=== PATIENT | male | born 2000 | race Caucasian/White ===

== ENCOUNTER 2020-09-14 18:52 | Emergency (ER) | payer OTHER ==
[~2020-09-14] VITALS: Ht 172.7 cm; Wt 108.9 kg
[2020-09-14 19:50] LABS: BASOPHILS % (AUTO) 0.7 % (0.0-2.0); EOSINOPHILS % (AUTO) 0.5 % (0.0-7.0); HEMATOCRIT 47.6 % (36.7-47.1); HEMOGLOBIN 16.6 g/dL (12.5-16.3); LYMPHOCYTES % (AUTO) 38.6 % (20.5-74.5); MEAN CORPUSCULAR HEMOGLOBIN 30.1 uug (23.8-33.4); MEAN CORPUSCULAR HGB CONC 35 g/dL (32.5-36.3); MEAN CORPUSCULAR VOLUME 86.1 fL (73.0-96.2); MONOCYTES # (AUTO) 0.4 K/uL (2.0-10.0); MONOCYTES % (AUTO) 7.4 % (0-11); NEUTROPHILS # (AUTO) 2.7 K/uL (1.8-8.9); NEUTROPHILS % (AUTO) 52.8 % (31.5-64.5); PLATELET COUNT (AUTO) 239 K/uL (152-348); RED BLOOD CELL COUNT(AUTO) 5.53 MIL/uL (4.06-5.63); WHITE BLOOD COUNT (AUTO) 5.1 K/uL (3.6-10.2)
[2020-09-14 19:59] LABS: POTASSIUM 4.4 mmol/L (3.5-5.1)
--- NOTE | 2020-09-14 20:00 | NUR ---
Pt resting with NAD noted, pending labs.
[2020-09-14 20:12] LABS: BILIRUBIN,TOTAL 0.5 mg/dL (0.2-1.0); TOTAL PROTEIN, SERUM 7.6 g/dL (6.4-8.2)
--- NOTE | 2020-09-14 20:33 | NUR ---
Patient discharged to home in stable condition. Written and verbal after care instructions given. Patient verbalizes understanding of instructions. Stressed follow up or return to ER for worsening s/s.
--- NOTE | 2020-09-14 20:33 | NUR ---
IV removed. Catheter intact and site benign. Pressure and 4x4 gauze applied to site. No bleeding noted.
--- NOTE | 2020-09-16 19:19 | NUR ---
patient informed of positive covid test.
== END 2020-09-14 20:36 | disposition home or self-care (01) ==
LOC: ER 18:54
DX: M94.0 Chondrocostal junction syndrome [Tietze] (principal); U07.1 COVID-19; R43.8 Other disturbances of smell and taste
CPT/HCPCS: 36415; 71045; 80053; 83880; 84484; 85025; 85379; 93005; 99285; U0003; 70030-TC; A4663

== ENCOUNTER 2020-12-27 10:18 | Emergency (ER) | payer MEDICAID, OTHER ==
[~2020-12-27] VITALS: Ht 172.7 cm; Wt 117.9 kg
[2020-12-27] MEDS ORDERED: IV NORMAL SALINE 1000 ML BAG IV ONE (10:30)
[2020-12-27] MEDS ORDERED: ONDANSETRON 4 MG/2 ML VIAL IV ONE (10:30)
[2020-12-27] MEDS ORDERED: ONDANSETRON 4 MG/2 ML VIAL ONE (10:36)
[2020-12-27 10:49] LABS: BASOPHILS % (AUTO) 0.4 % (0.0-2.0); EOSINOPHILS % (AUTO) 0.5 % (0.0-7.0); HEMATOCRIT 48.7 % (36.7-47.1); HEMOGLOBIN 16.6 g/dL (12.5-16.3); LYMPHOCYTES % (AUTO) 24.8 % (20.5-74.5); MEAN CORPUSCULAR HEMOGLOBIN 29.8 uug (23.8-33.4); MEAN CORPUSCULAR HGB CONC 34 g/dL (32.5-36.3); MEAN CORPUSCULAR VOLUME 87.5 fL (73.0-96.2); MONOCYTES # (AUTO) 0.4 K/uL (2.0-10.0); MONOCYTES % (AUTO) 4.9 % (0-11); NEUTROPHILS # (AUTO) 5.7 K/uL (1.8-8.9); NEUTROPHILS % (AUTO) 69.4 % (31.5-64.5); PLATELET COUNT (AUTO) 212 K/uL (152-348); RED BLOOD CELL COUNT(AUTO) 5.57 MIL/uL (4.06-5.63); WHITE BLOOD COUNT (AUTO) 8.2 K/uL (3.6-10.2)
[2020-12-27 10:53] LABS: *BILIRUBIN,URIN NEGATIVE (NEGATIVE); *BLOOD, URINE NEGATIVE (NEGATIVE); *CLARITY,URINE CLEAR (CLEAR); *COLOR,URINE YELLOW (YELLOW); *KETONES,URINE NEGATIVE (NEGATIVE); *UROBILINOGEN,URINE 0.2 E.U./dl (NORMAL); LEUKOCYTE ESTERASE ,URINE NEGATIVE (NEGATIVE); NITRITE, URINE NEGATIVE (NEGATIVE); UGLUCOSE NEGATIVE (NEGATIVE)
[2020-12-27 10:55] LABS: POTASSIUM 4.2 mmol/L (3.5-5.1)
[2020-12-27 11:00] LABS: BILIRUBIN,DIRECT 0.2 mg/dL (0.0-0.2); BILIRUBIN,TOTAL 0.5 mg/dL (0.2-1.0); TOTAL PROTEIN, SERUM 7.8 g/dL (6.4-8.2)
[2020-12-27] MEDS ORDERED: KETOROLAC TROMETHAMINE 30 MG INJ IVP ONE (11:15)
[2020-12-27] MEDS ORDERED: KETOROLAC TROMETHAMINE 30 MG INJ ONE (11:17)
[2020-12-27] MEDS ORDERED: TRAM50TA2 PO (11:23)
[2020-12-27] MEDS ORDERED: IBUP-1955 PO (11:23)
--- NOTE | 2020-12-27 11:39 | NUR ---
IV removed. Catheter intact and site benign. Pressure and 4x4 gauze applied to site. No bleeding noted. Patient discharged to home in stable condition with brisk steady gait. Written and verbal after care instructions given to patient. Patient verbalizes understanding & compliance of instructions. Stressed follow up with primary doctor & GI-surgeon or return to ER for worsening s/s.
== END 2020-12-27 11:41 | disposition home or self-care (01) ==
LOC: ER 10:18
DX: K80.70 Calculus of gallbladder and bile duct without cholecystitis without obstruction (principal); Z86.16 Personal history of COVID-19
CPT/HCPCS: 36415; 76705; 80048; 80076; 81003; 83690; 84484; 85025; 93005; 96374; 99285; J1885; J2405; 70030-TC; A4663; J7030

== ENCOUNTER 2025-07-11 12:27 | Emergency (ER) | payer OTHER ==
[~2025-07-11] VITALS: Ht 175.3 cm; Wt 80.7 kg
[~2025-07-11 12:27] MED LIST: IBUP-1955 PO
[2025-07-11 12:50] LABS: *BILIRUBIN,URIN NEGATIVE (NEGATIVE); *BLOOD, URINE NEGATIVE (NEGATIVE); *CLARITY,URINE CLEAR (CLEAR); *COLOR,URINE YELLOW (YELLOW); *KETONES,URINE NEGATIVE (NEGATIVE); *PROTEIN,URINE NEGATIVE (NEGATIVE); *UROBILINOGEN,URINE 0.2 E.U./dl (NORMAL); LEUKOCYTE ESTERASE ,URINE NEGATIVE (NEGATIVE); NITRITE, URINE NEGATIVE (NEGATIVE); UGLUCOSE NEGATIVE (NEGATIVE)
[2025-07-11 13:30] VITALS: BP 128/75
[2025-07-11 15:15] VITALS: BP 125/72; TEMP 98.2; O2SAT 98
[2025-07-14 00:07] LABS: *CHLAMYDIA NAA Negative (Negative); *GC NAA Negative (Negative); *TRIC.VAG. NAA Negative (Negative)
== END 2025-07-11 15:17 | disposition home or self-care (01) ==
LOC: ER 12:27
DX: R39.198 Other difficulties with micturition (principal); Z86.16 Personal history of COVID-19
CPT/HCPCS: 76870; 87491; A4606; A4663